=== PATIENT | male | born 1955 | race Caucasian/White ===

== ENCOUNTER 2019-10-19 05:34 | Inpatient (IN) | payer BC ==
[2019-10-12 14:41] LABS: BASOPHILS % (AUTO) 0.7 % (0-1); EOSINOPHILS # (AUTO) 0.1 X10'3 (0-0.9); EOSINOPHILS % (AUTO) 1.1 % (0-6); LYMPHOCYTES # (AUTO) 1.6 X10'3 (1.1-4.8); LYMPHOCYTES % (AUTO) 25.4 % (21-51); MEAN CORPUSCULAR HEMOGLOBIN 31.8 PG (27.0-31.0); MEAN CORPUSCULAR HGB CONC 33.9 g/dL (33.0-36.5); MEAN CORPUSCULAR VOLUME 93.9 FL (78-98); MEAN PLATELET VOLUME 8.9 FL (7.4-10.4); MONOCYTES # (AUTO) 0.6 X10'3 (0-0.9); MONOCYTES % (AUTO) 9.3 % (2-12); NEUTROPHILS # (AUTO) 3.9 X10'3 (1.8-7.7); NEUTROPHILS % (AUTO) 63.5 % (42-75); PRE OP HEMATOCRIT 45.2 % (42.0-52.0); PRE OP HEMOGLOBIN 15.3 g/dL (14.0-17.9); PRE OP PLATELET COUNT 178 X10'3 (140-440); RED BLOOD COUNT 4.82 X10'6 (4.70-6.10); RED CELL DISTRIBUTION WIDTH 13.2 % (11.5-14.5)
[2019-10-12 14:56] LABS: ALBUMIN 3.7 G/DL (3.4-5.0); ALBUMIN/GLOBULIN RATIO 1.2 (1.1-1.5); ALKALINE PHOSPHATASE 79 IU/L (46-116); BLOOD UREA NITROGEN 14 MG/DL (7-18); BUN/CREATININE RATIO 11.5 (5.4-32.0); CALCIUM 8.6 MG/DL (8.5-10.1); CHLORIDE 108 MMOL/L (99-107); CREATININE 1.22 MG/DL (0.60-1.10); PRE OP ALT 41 U/L (30-65); PRE OP ANION GAP 7 (8-16); PRE OP AST 27 U/L (10-37); PRE OP BILIRUB, TOTAL 0.4 MG/DL (0.0-1.0); PRE OP GLUCOSE 94 MG/DL (70-104); PRE OP POTASSIUM 4.1 MMOL/L (3.4-5.1); PRE OP SODIUM 142 MMOL/L (135-145); TOTAL CARBON DIOXIDE 27.4 MMOL/L (24-32); TOTAL PROTEIN 6.8 G/DL (6.4-8.2); eGFR 60 ML/MIN
[~2019-10-19] VITALS: Ht 177.8 cm; Wt 82.6 kg
[2019-10-19] VITALS (31 sets, daily range): BP systolic 95–139; BP diastolic 47–84
[~2019-10-19 05:34] MED LIST: ASCO250T48 PO; CHOL20004 PO; GLUC100017 PO; MULT-1074 PO; ceFAZolin 2gm in dextrose, iso 50 ML IV ONE; diazepam 5mg tablet PO PRN; famotidine 20mg tablet PO ONE; ringers solution, lacted 1,000 ML IV SCH
[2019-10-19] MEDS ORDERED: LIDOcaine 1% (10mg/ml) 2ml vial ONE (05:59)
[2019-10-19] MEDS ORDERED: LIDOcaine 1% 30ml preserv. free vial ONE (06:40)
[2019-10-19] MEDS ORDERED: BUPIVAcaine/PF 2.5 mg/ml (0.25%) 30ml vial ONE (06:40)
[2019-10-19] MEDS ORDERED: BUPIVACAINE liposomal/PF 13.3 MG/ML vial IM ONE (06:40)
[2019-10-19] MEDS ORDERED: BUPIVAcaine/PF 2.5mg/ml (0.25%) 10ml vial ONE (06:40)
[2019-10-19] MEDS ORDERED: scopolamine 1.5mg patch.TD72 TD ONE ×2 (07:11→07:15)
[2019-10-19] MEDS ORDERED: fentaNYL /PF 50mcg/ml 5ml ampule ONE (07:18)
[2019-10-19] MEDS ORDERED: rocuronium 10mg/ml inj IV ONE (07:19)
[2019-10-19] MEDS ORDERED: LIDOcaine 2% (20mg/ml) 5ml vial ONE (07:19)
[2019-10-19] MEDS ORDERED: propofol inj 20 ML IV ONE (07:19)
[2019-10-19] MEDS ORDERED: sevoflurane 250ml liquid IH ONE (07:35)
[2019-10-19] MEDS ORDERED: ringers solution, lacted 1,000 ML IV SCH (07:37)
[2019-10-19] MEDS ORDERED: morphine 2 MG/ML inj. syringe IV PRN (07:40)
[2019-10-19] MEDS ORDERED: meperidine/PF 25mg/ml syringe IV PRN ×3 (07:40)
[2019-10-19] MEDS ORDERED: morphine 4 MG/ML inj SYRINge IV PRN (07:40)
[2019-10-19] MEDS ORDERED: ondansetron/PF 4mg/2ml inj IV PRN ×2 (07:40→16:15)
[2019-10-19] MEDS ORDERED: proCHLORperazine 10 MG/2 ml inj IV PRN (07:40)
[2019-10-19] MEDS ORDERED: ondansetron/PF 4mg/2ml inj ONE (07:49)
[2019-10-19] MEDS ORDERED: neostigmine methylsulfate 1 MG/ML 10ml vial ONE (07:49)
[2019-10-19] MEDS ORDERED: glycopyrrolate 0.2mg/ml inj ONE (07:49)
[2019-10-19] MEDS ORDERED: dexamethasone sod phosphate 4mg/ml inj. ONE (07:49)
[2019-10-19] MEDS ORDERED: acetaminophen 1,000mg/100ml IV 100 ML IV ONE (08:01)
--- NOTE | 2019-10-19 10:57 | NUR ---
Received from OR via [facility], accompanied by Anesthesiologist DR DECKER and report given by Anesthesiologist. PT VERY DROWSY, NO S/S OF DISTRESS, LAP SITES COVERED BY ABDOMINAL BINDER, CDI. Addendum: 10/19/19 at 1115 by Valerie Dickson RN Amended: Links added.
[2019-10-19] MEDS ORDERED: oxyCODONE/APAP 10/325mg tablet PO PRN (11:05)
[2019-10-19] MEDS ORDERED: OXYC-511 PO (11:12)
[2019-10-19] MEDS ORDERED: ePHEDrine 50MG/ML INJ. ONE (11:18)
--- NOTE | 2019-10-19 13:17 | NUR ---
PT SENT TO [facility], HAS NOT VOIDED YET, PAIN IMPROVED, NAUSEA SUBSIDED. Addendum: 10/19/19 at 1401 by Valerie Dickson RN Amended: Links added.
--- NOTE | 2019-10-19 13:20 | NUR ---
tO PAS, AWAITING PT TO VOID POSTOP. DSG DI, PAIN LEVEL 2. SLEEPING. VS WNL,
--- NOTE | 2019-10-19 14:20 | NUR ---
MORE AWAKE TOLERATING LIQUIDS. PAIN STILL MINIMAL. STILL UNABLE TO VOID.
--- NOTE | 2019-10-19 15:20 | NUR ---
AWAKE, CO PAIN WHEN MOVING, 9, OTHERWISE A 3 WHILE IN BED. GOT UP TO BATHROOM TO VOID, EXTREMELY PAINFUL AND GOT LIGHTHEADED,. UNABLE TO VOID BACK TO BED. MED PO FOR PAIN. TOLERATES LIQUIDS. ABD BINDER ON, DSG DI. VS WNL
[2019-10-19] MEDS ORDERED: naloxone 0.4 mg/ml inj IV PRN (16:15)
[2019-10-19] MEDS ORDERED: CADD PCA waste documentation MC PRN (16:15)
[2019-10-19] MEDS ORDERED: LIDOcaine 2% 10ml TOPICAL JELLY (Urojet) ONE (16:18)
--- NOTE | 2019-10-19 16:20 | NUR ---
AWAKE UNABLE TO URINATE, BLADDER SCANNED FOR 502ML. DR NUNEZ IN TO SEE PT. PT HAS ALOT PAIN WHEN MOVING OTHERWISE IN BED HE HAS MINIMAL PAIN. #18 SNOWDEN PLACED BY DEBBY SANTANA RN. CLEAR YELLOW URINE. SECURED. ABD SOFT DSG AND BINDER DI. VS WNL, NAUSEA DECREASED. HAS PT'S PAIN MED SCRIPT AND IS HAVING IT FILLED AT THEIR PHARMACY.
[2019-10-19] MEDS: HYDROmorphone/NS 1 mg/ml CADD 50 ML IV SCH ×5 (17:00→23:00)
--- NOTE | 2019-10-19 17:20 | NUR ---
Report called to receiving nurse. Transferred via [facility] . Special Issues communicated to receiving nurse.AWAKE VS WNL, DSG DI, UNABLE TO VOID CATH PLACED CLEAR YELLOW URINE. PAIN DECREASED, INSTRUCTED ON HOW TO USE CADD. TO ROOM 346A.
--- NOTE | 2019-10-19 18:15 | NUR ---
Patient in room [facility]. I have received report from Trisha MCCOY and had the opportunity to ask questions and assume patient care.
--- NOTE | 2019-10-19 18:29 | NUR ---
Problems reprioritized. Patient report given, questions answered & plan of care reviewed with Adeola MCCOY.
[2019-10-19] MEDS ORDERED: normal saline 1000ml 1,000 ML IV SCH (19:47)
[2019-10-20] MEDS: HYDROmorphone/NS 1 mg/ml CADD 50 ML IV SCH ×6 (01:00→11:00)
[2019-10-20 04:00] VITALS: BP 111/59
--- NOTE | 2019-10-20 05:15 | NUR ---
d/c FC at 0515. pt tolerated well. pt too painful to ambulate at this time. will continue to monitor.
[2019-10-20 05:54] LABS: BASOPHILS % (AUTO) 0.4 % (0-1); EOSINOPHILS % (AUTO) 0.2 % (0-6); HEMATOCRIT 44.5 % (42.0-52.0); HEMOGLOBIN 15.1 g/dl (14.0-17.9); LYMPHOCYTES # (AUTO) 1.3 X10'3 (1.1-4.8); MEAN CORPUSCULAR HEMOGLOBIN 32.6 PG (27.0-31.0); MEAN CORPUSCULAR HGB CONC 33.9 g/dL (33.0-36.5); MEAN PLATELET VOLUME 9.3 FL (7.4-10.4); MONOCYTES # (AUTO) 1.1 X10'3 (0-0.9); MONOCYTES % (AUTO) 11.1 % (2-12); NEUTROPHILS # (AUTO) 7.6 X10'3 (1.8-7.7); NEUTROPHILS % (AUTO) 75.3 % (42-75); PLATELET COUNT 156 X10'3 (140-440); RED BLOOD COUNT 4.63 X10'6 (4.70-6.10); RED CELL DISTRIBUTION WIDTH 13.4 % (11.5-14.5); WHITE BLOOD COUNT 10.1 X10'3 (4.5-11.0)
[2019-10-20 06:03] LABS: ALBUMIN 3.3 G/DL (3.4-5.0); ANION GAP 8 (8-16); BLOOD UREA NITROGEN 16 MG/DL (7-18); BUN/CREATININE RATIO 13.9 (5.4-32.0); CALCIUM 8.7 MG/DL (8.5-10.1); CHLORIDE 107 MMOL/L (99-107); CREATININE 1.15 MG/DL (0.60-1.10); GLUCOSE 118 MG/DL (70-104); POTASSIUM 4.5 MMOL/L (3.5-5.1); SODIUM 140 MMOL/L (135-145); TOTAL CARBON DIOXIDE 25.3 MMOL/L (24-32); eGFR 64 ML/MIN
--- NOTE | 2019-10-20 06:15 | NUR ---
Patient in room [facility]. I have received report from DARIUS Mir and had the opportunity to ask questions and assume patient care.
[2019-10-20 06:30] VITALS: BP 104/54
--- NOTE | 2019-10-20 06:38 | NUR ---
Problems reprioritized. Patient report given, questions answered & plan of care reviewed with Tawanna RN.
--- NOTE | 2019-10-20 06:40 | NUR ---
Patient in room [facility]. I have received report from Tawanna MCCOY and had the opportunity to ask questions and assume patient care.
[2019-10-20] MEDS ORDERED: GLUCOSAMINE SULFATE 500 MG PO SCH (08:00)
[2019-10-20] MEDS: multivitamins, therapeutics tablet PO SCH (08:08)
[2019-10-20] MEDS: vitamin D (cholecalciferol) 1,000 unit tablet PO SCH (08:09)
[2019-10-20] MEDS: ascorbic acid 500mg tablet PO SCH (08:10)
--- NOTE | 2019-10-20 10:43 | NUR ---
Student documentation: I have reviewed and agree with all interventions, assessments performed and documented by Reg, nursing informatics specialist.
--- NOTE | 2019-10-20 10:43 | NUR ---
Student Medication Administration: For this medication-pass time frame, all medication were reviewed, dispensed, administered and documented per hospital policy by Reg skilled nursing facility counselor.
[2019-10-20 11:00] VITALS: BP 113/62
--- NOTE | 2019-10-20 11:14 | NUR ---
during cadd reassessment, the pump was inadvertently reset. The given and attempted amounts are now set at zero.
[2019-10-20] MEDS ORDERED: tamsulosin 0.4mg capsule PO ONE (12:50)
[2019-10-20] MEDS ORDERED: oxyCODONE/APAP 5-325mg tablet PO PRN (13:00)
[2019-10-20] MEDS ORDERED: CADD PCA waste documentation MC PRN (14:15)
[2019-10-20] MEDS: oxyCODONE/APAP 10/325mg tablet PO PRN ×2 (14:21→20:24)
[2019-10-20] MEDS: mag hydrox/Alum hydrox/simeth 30ml oral suspension PO PRN ×2 (14:33→20:29)
--- NOTE | 2019-10-20 17:34 | NUR ---
Problems reprioritized. Patient report given, questions answered & plan of care reviewed with Tawanna RN.
--- NOTE | 2019-10-20 18:50 | NUR ---
Received report from primary care nurse Tawanna MCCOY. Assumed primary care. Patient is awake and alert on room air speaking on the phone with his daughter. In no apparent distress. Call light and items of frequent use within reach. Will continue to monitor for changes.
--- NOTE | 2019-10-20 18:50 | NUR ---
Problems reprioritized. Patient report given, questions answered & plan of care reviewed with DARIUS Simpson.
[2019-10-20 19:00] VITALS: BP 135/72
--- NOTE | 2019-10-20 22:30 | NUR ---
Reported off to Dotty MCCOY. Patient is resting with relaxed and unlabored respirations. In no apparent distress.
--- NOTE | 2019-10-20 22:30 | NUR ---
Patient in room [facility]. I have received report from DARIUS Simpson and had the opportunity to ask questions and assume patient care. Addendum: 10/20/19 at 2230 by Florina Hopkins RN Amended: Links added.
[2019-10-21] VITALS: BP 116/56
[2019-10-21] MEDS: mag hydrox/Alum hydrox/simeth 30ml oral suspension PO PRN ×4 (02:59→21:47)
[2019-10-21] MEDS: oxyCODONE/APAP 10/325mg tablet PO PRN ×4 (03:41→21:49)
--- NOTE | 2019-10-21 06:25 | NUR ---
Problems reprioritized. Patient report given, questions answered & plan of care reviewed with DARIUS Stacy.
--- NOTE | 2019-10-21 06:25 | NUR ---
Patient in room [facility]. I have received report from Loan Anguiano RN and had the opportunity to ask questions and assume patient care.
[2019-10-21 06:30] VITALS: BP 124/61
[2019-10-21 06:56] LABS: BASOPHILS % (AUTO) 0.3 % (0-1); EOSINOPHILS # (AUTO) 0.1 X10'3 (0-0.9); HEMOGLOBIN 13.8 g/dl (14.0-17.9); LYMPHOCYTES # (AUTO) 0.9 X10'3 (1.1-4.8); LYMPHOCYTES % (AUTO) 12.4 % (21-51); MEAN CORPUSCULAR HEMOGLOBIN 32.1 PG (27.0-31.0); MEAN CORPUSCULAR HGB CONC 33.7 g/dL (33.0-36.5); MEAN CORPUSCULAR VOLUME 95.2 FL (78-98); MONOCYTES # (AUTO) 0.8 X10'3 (0-0.9); MONOCYTES % (AUTO) 10.7 % (2-12); NEUTROPHILS # (AUTO) 5.6 X10'3 (1.8-7.7); NEUTROPHILS % (AUTO) 75.6 % (42-75); PLATELET COUNT 151 X10'3 (140-440); RED BLOOD COUNT 4.31 X10'6 (4.70-6.10); RED CELL DISTRIBUTION WIDTH 13.5 % (11.5-14.5); WHITE BLOOD COUNT 7.4 X10'3 (4.5-11.0)
[2019-10-21 07:10] LABS: ALBUMIN 3.1 G/DL (3.4-5.0); ANION GAP 3 (8-16); BLOOD UREA NITROGEN 16 MG/DL (7-18); BUN/CREATININE RATIO 16.2 (5.4-32.0); CALCIUM 8.4 MG/DL (8.5-10.1); CHLORIDE 105 MMOL/L (99-107); CREATININE 0.99 MG/DL (0.60-1.10); GLUCOSE 118 MG/DL (70-104); POTASSIUM 4.6 MMOL/L (3.5-5.1); SODIUM 139 MMOL/L (135-145); TOTAL CARBON DIOXIDE 30.6 MMOL/L (24-32); eGFR 76 ML/MIN
[2019-10-21] MEDS: multivitamins, therapeutics tablet PO SCH (08:06)
[2019-10-21] MEDS: ascorbic acid 500mg tablet PO SCH (08:06)
[2019-10-21] MEDS: tamsulosin 0.4mg capsule PO SCH (08:06)
[2019-10-21] MEDS: vitamin D (cholecalciferol) 1,000 unit tablet PO SCH (08:06)
[2019-10-21] MEDS ORDERED: methylnaltrexone br 12mg/0.6ml inj***SubQ only SQ ONE (09:45)
[2019-10-21 11:45] VITALS: BP 127/70
--- NOTE | 2019-10-21 18:28 | NUR ---
Patient in room [facility]. I have received report from DARIUS Stacy and had the opportunity to ask questions and assume patient care.
--- NOTE | 2019-10-21 18:40 | NUR ---
Problems reprioritized. Patient report given, questions answered & plan of care reviewed with Dotty Anguiano RN.
[2019-10-21 19:42] VITALS: BP 130/73
[2019-10-22] VITALS: BP 127/60
[2019-10-22] MEDS: oxyCODONE/APAP 10/325mg tablet PO PRN ×3 (03:48→20:57)
--- NOTE | 2019-10-22 06:10 | NUR ---
Patient in room [facility]. I have received report from Dotty Anguiano RN and had the opportunity to ask questions and assume patient care.
--- NOTE | 2019-10-22 06:18 | NUR ---
Problems reprioritized. Patient report given, questions answered & plan of care reviewed with DARIUS Stacy.
[2019-10-22 06:30] VITALS: BP 130/74
[2019-10-22 07:42] LABS: BASOPHILS % (AUTO) 0.5 % (0-1); EOSINOPHILS # (AUTO) 0.2 X10'3 (0-0.9); EOSINOPHILS % (AUTO) 2.6 % (0-6); HEMATOCRIT 43.9 % (42.0-52.0); HEMOGLOBIN 14.8 g/dl (14.0-17.9); LYMPHOCYTES # (AUTO) 1.6 X10'3 (1.1-4.8); LYMPHOCYTES % (AUTO) 25.3 % (21-51); MEAN CORPUSCULAR HEMOGLOBIN 32.2 PG (27.0-31.0); MEAN CORPUSCULAR HGB CONC 33.6 g/dL (33.0-36.5); MEAN PLATELET VOLUME 9.5 FL (7.4-10.4); MONOCYTES # (AUTO) 0.8 X10'3 (0-0.9); MONOCYTES % (AUTO) 12.1 % (2-12); NEUTROPHILS # (AUTO) 3.8 X10'3 (1.8-7.7); NEUTROPHILS % (AUTO) 59.5 % (42-75); PLATELET COUNT 152 X10'3 (140-440); RED BLOOD COUNT 4.58 X10'6 (4.70-6.10); RED CELL DISTRIBUTION WIDTH 13.5 % (11.5-14.5); WHITE BLOOD COUNT 6.5 X10'3 (4.5-11.0)
[2019-10-22 07:46] LABS: ALBUMIN 3.5 G/DL (3.4-5.0); ANION GAP 6 (8-16); BLOOD UREA NITROGEN 10 MG/DL (7-18); BUN/CREATININE RATIO 11.1 (5.4-32.0); CALCIUM 8.7 MG/DL (8.5-10.1); CHLORIDE 105 MMOL/L (99-107); GLUCOSE 113 MG/DL (70-104); POTASSIUM 4.3 MMOL/L (3.5-5.1); SODIUM 143 MMOL/L (135-145); TOTAL CARBON DIOXIDE 31.7 MMOL/L (24-32); eGFR 85 ML/MIN
[2019-10-22] MEDS: vitamin D (cholecalciferol) 1,000 unit tablet PO SCH (08:01)
[2019-10-22] MEDS: mag hydrox/Alum hydrox/simeth 30ml oral suspension PO PRN ×2 (08:01→15:01)
[2019-10-22] MEDS: tamsulosin 0.4mg capsule PO SCH (08:01)
[2019-10-22] MEDS: multivitamins, therapeutics tablet PO SCH (08:01)
[2019-10-22] MEDS: ascorbic acid 500mg tablet PO SCH (08:01)
[2019-10-22 11:00] VITALS: BP 128/76
[2019-10-22] MEDS: magnesium hydroxide 30ml (MOM) UD suspension PO SCH (15:03)
--- NOTE | 2019-10-22 18:10 | NUR ---
Problems reprioritized. Patient report given, questions answered & plan of care reviewed with DARIUS Ortiz.
--- NOTE | 2019-10-22 18:53 | NUR ---
Patient in room [facility]. I have received report from Tawanna MCCOY and had the opportunity to ask questions and assume patient care.
[2019-10-22 19:38] VITALS: BP 146/80
[2019-10-23 00:07] VITALS: BP 124/61
--- NOTE | 2019-10-23 06:18 | NUR ---
Problems reprioritized. Patient report given, questions answered & plan of care reviewed with Kami MCCOY.
--- NOTE | 2019-10-23 06:29 | NUR ---
Patient in room [facility]. I have received report from Diana MCCOY and had the opportunity to ask questions and assume patient care.
[2019-10-23 06:55] LABS: BASOPHILS % (AUTO) 0.5 % (0-1); EOSINOPHILS # (AUTO) 0.2 X10'3 (0-0.9); EOSINOPHILS % (AUTO) 3.4 % (0-6); HEMATOCRIT 39.3 % (42.0-52.0); HEMOGLOBIN 13.2 g/dl (14.0-17.9); LYMPHOCYTES # (AUTO) 1.5 X10'3 (1.1-4.8); LYMPHOCYTES % (AUTO) 24.9 % (21-51); MEAN CORPUSCULAR HGB CONC 33.6 g/dL (33.0-36.5); MEAN CORPUSCULAR VOLUME 95.1 FL (78-98); MEAN PLATELET VOLUME 9.1 FL (7.4-10.4); MONOCYTES # (AUTO) 0.6 X10'3 (0-0.9); MONOCYTES % (AUTO) 10.6 % (2-12); NEUTROPHILS # (AUTO) 3.7 X10'3 (1.8-7.7); NEUTROPHILS % (AUTO) 60.6 % (42-75); PLATELET COUNT 160 X10'3 (140-440); RED BLOOD COUNT 4.13 X10'6 (4.70-6.10); RED CELL DISTRIBUTION WIDTH 13.4 % (11.5-14.5)
[2019-10-23 07:00] VITALS: BP 127/69
[2019-10-23 07:15] LABS: ALBUMIN 2.8 G/DL (3.4-5.0); ANION GAP 5 (8-16); BLOOD UREA NITROGEN 10 MG/DL (7-18); BUN/CREATININE RATIO 12.3 (5.4-32.0); CALCIUM 8.4 MG/DL (8.5-10.1); CHLORIDE 108 MMOL/L (99-107); CREATININE 0.81 MG/DL (0.60-1.10); GLUCOSE 95 MG/DL (70-104); POTASSIUM 4.2 MMOL/L (3.5-5.1); SODIUM 142 MMOL/L (135-145); eGFR > 90 ML/MIN
[2019-10-23] MEDS: magnesium hydroxide 30ml (MOM) UD suspension PO SCH (07:15)
[2019-10-23] MEDS: multivitamins, therapeutics tablet PO SCH (07:15)
[2019-10-23] MEDS: ascorbic acid 500mg tablet PO SCH (07:16)
[2019-10-23] MEDS: tamsulosin 0.4mg capsule PO SCH (07:16)
[2019-10-23] MEDS: vitamin D (cholecalciferol) 1,000 unit tablet PO SCH (07:17)
[2019-10-23] MEDS: oxyCODONE/APAP 10/325mg tablet PO PRN (09:51)
--- NOTE | 2019-10-23 10:05 | NUR ---
patient seen by Dr Knight, is for discharge medicated for pain x1 with relief. Abdominal binder in place, three lap sites CDI. . All Dc instructions given to patient . patient stated understanding. prescription given for Percocet. IV removed intact. patient awaiting ride home at this time.
--- NOTE | 2019-10-23 10:41 | NUR ---
patients present. patient DC home via private car in stable condition 1045hrs.
== END 2019-10-23 10:36 | disposition home or self-care (01) | DRG 336 ==
LOC: PAS 05:34 → SUR 3N 16:14
PROVIDERS: ADMIT Surgery; ATTEND Surgery
PROC: 0DNW4ZZ Release Peritoneum, Percutaneous Endoscopic Approach (ICD-10-PCS; 2019-10-19)
PROC: 8E0W4CZ Robotic Assisted Procedure of Trunk Region, Percutaneous Endoscopic Approach (ICD-10-PCS; 2019-10-19)
PROC: 3E0T3BZ Introduction of Anesthetic Agent into Peripheral Nerves and Plexi, Percutaneous Approach (ICD-10-PCS; 2019-10-19)
PROC: 0WUF4JZ Supplement Abdominal Wall with Synthetic Substitute, Percutaneous Endoscopic Approach (ICD-10-PCS; principal; 2019-10-19 07:35)
DX: K43.0 Incisional hernia with obstruction, without gangrene (principal); K56.7 Ileus, unspecified; K66.0 Peritoneal adhesions (postprocedural) (postinfection); R33.9 Retention of urine, unspecified; Z79.899 Other long term (current) drug therapy
CPT/HCPCS: Z7506; Z7508; 36415; 80048; 80053; 82948; 85025; 93005; A4215; A4618; C1781; C9290; G0378; J0131; J0780; J1100; J1170; J2001; J2175; J2212; J2270; J2405; J2704; J2710; J3010; J3490; J7030; J7120